=== PATIENT | female | born 2000 | race Caucasian/White ===

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

== ENCOUNTER 2020-06-05 20:37 | Emergency (ER) | payer SELFPAY ==
--- NOTE | 2020-06-05 21:30 | ER Document Report ---
ED GI/ - General Chief Complaint: Flank Pain Stated Complaint: RIGHT SIDE FLANK PAIN Time Seen by Provider: 06/05/20 21:14 Primary Care Provider: JERSON MORENO FNP-MACK [Primary Care Provider] - Follow up as needed Mode of Arrival: Ambulatory Information source: Patient Notes: 06/05/20 21:01 - ED Nursing Note by JACIEL BEST Acc Num: [id number] : 2000 Patient Age: 20 Pt. arrived tonight via POV, C/O right sided flank pain. Pt. has a HX of kidney infection. Pt. is A & O X3, breathing is even and unlabored NAD at this tiem. Initialized on 06/05/20 21:01 - END OF NOTE MY NOTES 20-year-old female arrived by POV with her father as street flusher driver. 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 She reports on Wednesday she had her last Covid test which was negative. She had both nasal and saliva test done. She has been complaining of right anterior chest pain and difficulty breathing since she returned home today. Her mother is ICU nurse and did a percussion of her right CVA which invoked a great deal of pain prior to arrival. Patient reports she has had kidney infections at least twice over the last 2 years. She denies any STDs denies any vaginal discharge denies any . She denies any trauma she denies any abuse. Her father reports they have 2 dogs in the house and neither the dogs nor mother nor father are sick with Covid or URI symptoms. Patient last ate a few oysters prior to arrival. She also advises she last had a fairly good meal was yesterday morning and this is when her father cooked her eggs. Her appetite has been decreased. Patient reports she been driving 3 to 6 hours frequently over the last month. She also takes control pills. TRAVEL OUTSIDE OF THE [place] IN LAST 30 DAYS: No - HPI Patient complains to provider of: Abdominal pain Onset: This morning - Related Data Allergies/Adverse Reactions: No Known Allergies Allergy (Verified 04/17/16 15:57) Past Medical History - Social History Smoking Status: Never Smoker Chew tobacco use (# tins/day): No Frequency of alcohol use: None Drug Abuse: None Family History: Reviewed & Not Pertinent Patient has homicidal ideation: No Renal/ Medical History: Denies: Hx Peritoneal Dialysis Psychiatric Medical History: Reports: Hx Depression - Immunizations Immunizations up to date: Yes Hx Diphtheria, Pertussis, Tetanus Vaccination: Yes Review of Systems - Review of Systems Constitutional: See HPI, Weakness EENT: No symptoms reported Cardiovascular: See HPI, Chest pain Respiratory: No symptoms reported Gastrointestinal: See HPI, Abdominal pain Genitourinary: No symptoms reported Female Genitourinary: No symptoms reported Musculoskeletal: See HPI, Back pain Skin: No symptoms reported Hematologic/Lymphatic: No symptoms reported Neurological/Psychological: No symptoms reported Physical Exam - Vital signs Vitals: Temp 99.0 F 06/05/20 20:38 Interpretation: Febrile - General General appearance: Alert, Anxious - HEENT Head: Normocephalic, Atraumatic Eyes: Normal Pupils: PERRL - Respiratory Respiratory status: No respiratory distress Chest status: Nontender Breath sounds: Normal Chest palpation: Normal - Cardiovascular Rhythm: Regular Heart sounds: Normal auscultation Murmur: No - Abdominal Inspection: Normal Distension: No distension Bowel sounds: Normal Tenderness: Tender - R CVA pain on percussion Organomegaly: No organomegaly - Rectal Hemorrhoids: Other - deferred - Genitourinary Bimanuel exam: Other - deferred - Back Back: Normal, Nontender - Extremities General upper extremity: Normal inspection, Nontender, Normal color, Normal ROM, Normal temperature General lower extremity: Normal inspection, Nontender, Normal color, Normal ROM, Normal temperature, Normal weight bearing. No: Freda's sign - Neurological Neuro grossly intact: Yes Cognition: Normal Orientation: AAOx4 Slade Coma Scale Eye Opening: Spontaneous Johny Coma Scale Verbal: Oriented Johny Coma Scale Motor: Obeys Commands Johny Coma Scale Total: 15 Speech: Normal Motor strength normal: LUE, RUE, LLE, RLE Sensory: Normal - Psychological Associated symptoms: Normal affect, Normal mood - Skin Skin Temperature: Warm Skin Moisture: Dry Skin Color: Normal Course - Vital Signs Vital signs: Temp Pulse Resp BP Pulse Ox 98.9 F 80 20 133/71 H 99 06/05/20 20:45 06/05/20 20:45 06/05/20 20:45 06/05/20 20:45 06/05/20 20:45 - Laboratory Result Diagrams: 06/05/20 21:24 06/05/20 21:24 Laboratory results interpreted by me: 06/05/20 06/05/20 06/05/20 21:24 21:24 21:39 Hgb 10.2 L Hct 30.6 L MCH 26.9 L Sodium 134.0 L Urine Ketones 20 H - Diagnostic Test Radiology reviewed: Reports reviewed - Initial reading was bilateral infiltrates right greater than left lower lobes on chest x-ray.; CTA revealed right greater than left pulmonary embolism with pleural effusion Critical Care Note - Critical Care Note Total time excluding time spent on procedures (mins): 40 Comments: Prolonged work-up and discussion with patient and family involved around 40 minutes of time. Discharge - Discharge Clinical Impression: Pulmonary embolism and infarction Abdominal pain Qualifiers: Abdominal location: right upper quadrant Qualified Code(s): R10.11 - Right upper quadrant pain Back pain Qualifiers: Back pain location: thoracic back pain Chronicity: acute Back pain laterality: right Qualified Code(s): M54.6 - Pain in thoracic spine Condition: Stable Disposition: HOME, SELF-CARE Additional Instructions: Follow-up with personal doctor this week. Return to ER as needed take medicines as directed. May want to hold your control pills and any progesterone or estrogen in the future. Also you can get your doctor to evaluate for protein C protein S Antithrombin III Leyden factor V and other blood tests to check for clotting problems. Take medications Zithromax Decadron and Pepcid for inflammation. So far your CT does not show any Covid type inflammation but only pulmonary emboli. Avoid flying or prolonged driving; every hour after driving (greater than 1 hour) try to stop driving and stand and walk for at least 30 feet. Your Covid test will be run and processed after 2 days. Prescriptions: Dexamethasone [Decadron 4 Mg Tablet] 4 mg PO DAILY #5 tablet Famotidine [Pepcid 20 mg Tablet] 20 mg PO BID #12 tablet Rivaroxaban [Xarelto 15 mg Tablet] 15 mg PO BID 21 Days #42 tablet Azithromycin [Zithromax 250 mg Tablet] 250 mg PO ASDIR PRN #6 tablet PRN Reason: Referrals: JERSON MORENO, [facility] [Primary Care Provider] - Follow up as needed
[2020-06-05 21:51] LABS: ABSOLUTE LYMPHOCYTES (AUTO) 1.9 10^3/uL (0.5-4.7); ABSOLUTE NEUT (AUTO) 6.6 10^3/uL (1.7-8.2); ALBUMIN 4.2 g/dL (3.5-5.0); ALKALINE PHOSPHATASE 58 U/L (38-126); ANION GAP 9 (5-19); ASPARTATE AMINO TRANSFERASE 17 U/L (14-36); BASOPHILS % (AUTO) 0.3 % (0-2); BILIRUBIN,TOTAL 0.5 mg/dL (0.2-1.3); BLOOD UREA NITROGEN 8 mg/dL (7-20); CALCIUM 8.9 mg/dL (8.4-10.2); CARBON DIOXIDE 22 mmol/L (22-30); CHLORIDE 103 mmol/L (98-107); EOSINOPHILS % (AUTO) 0.2 % (0-6); GLUCOSE 96 mg/dL (75-110); HEMATOCRIT 30.6 % (36.0-47.0); HEMOGLOBIN 10.2 g/dL (12.0-15.5); LYMPHOCYTES % (AUTO) 19.7 % (13-45); MEAN CORPUSCULAR HEMOGLOBIN 26.9 pg (27.0-33.4); MEAN CORPUSCULAR HGB CONC 33.3 g/dL (32.0-36.0); MEAN CORPUSCULAR VOLUME 81 fl (80-97); MONOCYTES % (AUTO) 10.5 % (3-13); PLATELET COUNT 280 10^3/uL (150-450); POTASSIUM 4.1 mmol/L (3.6-5.0); RED BLOOD COUNT 3.78 10^6/uL (3.72-5.28); RED CELL DISTRIBUTION WIDTH 13.2 % (11.5-14.0); SEGMENTED NEUTROPHILS % (AUTO) 69.3 % (42-78); TOTAL CELLS COUNTED % (AUTO) 100 %; WHITE BLOOD COUNT 9.5 10^3/uL (4.0-10.5)
[2020-06-05 22:02] LABS: APPEARANCE,URINE SLIGHTLY-CLOUDY; BILIRUBIN,URINE NEGATIVE (NEGATIVE); COLOR,URINE YELLOW; GLUCOSE, URINE NEGATIVE (NEGATIVE); KETONES,URINE 20 mg/dL (NEGATIVE); LEUKOCYTE ESTERASE,URINE NEGATIVE (NEGATIVE); NITRITE,URINE NEGATIVE (NEGATIVE); PROTEIN,URINE NEGATIVE (NEGATIVE); UROBILINOGEN,URINE NEGATIVE mg/dL (<2.0)
--- NOTE | 2020-06-05 22:18 | RADIOLOGY REPORT (SQ) ---
EXAM DESCRIPTION: XR CHEST 2 VIEWS COMPLETED DATE/TME: 06/05/2020 21:37 CLINICAL HISTORY: 20 years, Female, right flank pain EXAM DESCRIPTION: CHEST 2 VIEWS CLINICAL HISTORY: right flank pain COMPARISON: None. FINDINGS: Two views of the chest are submitted. Cardiac silhouette appears normal. There is subtle consolidation in the lingula. There is also subtle consolidation at the posterior right lung base. There is no significant pulmonary vascular engorgement. IMPRESSION: Bilateral consolidations.
[2020-06-05] MEDS ORDERED: KETOROLAC TROMETHAMINE INJ/PF 30 MG/1 ML SDV IV ONE (22:30)
[2020-06-05] MEDS ORDERED: AZITHROMYCIN INJ 500 MG VIAL IV ONE (22:41)
[2020-06-05] MEDS ORDERED: FAMOTIDINE INJ/PF 20 MG/2 ML SDV IV ONE (22:42)
[2020-06-05] MEDS ORDERED: DEXAMETHASONE SOD PHOS INJ 10 MG/1 ML VIAL IV ONE (22:42)
--- NOTE | 2020-06-05 23:02 | RADIOLOGY REPORT (SQ) ---
CT ABDOMEN AND PELVIS WITHOUT INTRAVENOUS CONTRAST: 06/05/2020 9:57 PM [employer] HISTORY: 20-year old with right-sided flank pain. COMPARISON: None available TECHNIQUE: Axial contiguous images were obtained from the lung bases to the proximal femurs without intravenous contrast administered. Sagittal and coronal reconstructions were also obtained and reviewed. This exam was performed according to our departmental dose-optimization program, which includes automated exposure control, adjustment of the mA and/or KV according to the patient's size and/or use of iterative reconstruction technique. FINDINGS: There are airspace opacities at the right lung base. There is a trace right effusion present. Evaluation of the solid organs is limited by the lack of intravenous contrast. The visualized hepatic parenchyma is unremarkable. The gallbladder demonstrates no evidence of calcified gallstones. The spleen is within normal limits of size. The pancreas is unremarkable. The bilateral adrenal glands appear unremarkable. Both kidneys demonstrate no evidence of hydronephrosis. No renal or ureteral calculi are seen. The urinary bladder is mildly distended, and appears grossly unremarkable. There is a left adnexal hypodensity measuring at least 5.0 x 3.5 cm. The uterus is faintly visualized. The stomach is not well distended. The small bowel loops appear unremarkable. No pericolonic inflammatory stranding is seen. The appendix appears unremarkable. There is no evidence of pneumoperitoneum or free fluid. The aorta and IVC appear normal in size. No significantly enlarged lymph nodes are seen in the abdomen or pelvis. Review of the bone show no evidence of any suspicious lytic or blastic lesions. There is motion artifact extending across the sacrum, posterior bilateral acetabulum, and right inferior pubic ramus which gives the false appearance of fractures. This can be correlated with any point tenderness. Metallic umbilical jewelry is seen. IMPRESSION: There is a 5.0 cm left adnexal hypodensity which could represent a physiologic cyst. Further evaluation with pelvic ultrasound is recommended to better characterize this area. There is a trace right effusion with overlying airspace opacities concerning for infection. There is motion artifact extending across the sacrum, posterior bilateral acetabulum, and right inferior pubic ramus which gives the false appearance of fractures. This can be correlated with any point tenderness
[2020-06-05] MEDS ORDERED: CEFTRIAXONE INJ 1000 MG VIAL IV ONE (23:26)
--- NOTE | 2020-06-06 00:38 | RADIOLOGY REPORT (SQ) ---
EXAM DESCRIPTION: CTA CHEST CLINICAL HISTORY: 20 years Female; chest with alon infiltrates TECHNIQUE: CT angiogram of the chest using intravenous contrast.. MIP reconstructions were performed. All CT scans at this facility use dose modulation, iterative reconstruction, and/or weight based dosing when appropriate to reduce radiation dose to as low as reasonably achievable. COMPARISON: Radiograph of the chest obtained earlier in the day FINDINGS: Chest: Vascular: Filling defects are present in multiple segmental vessels extending into the right lower lobe. There is a small amount of thrombus also seen extending into scattered left lower lobe branches. Overall clot burden is small to moderate. Findings are consistent with acute bilateral pulmonary artery embolization. No evidence of right heart strain. Thoracic aorta is of normal caliber. Proximal great vessels are normal and the left vertebral artery arises directly from the aortic arch. This is a normal variant. Lungs: Patchy volume loss is present in the right lower lobe posteriorly. This may represent atelectasis, infiltrate or pulmonary infarction. Small right pleural effusion. No pneumothorax. Mediastinum: Heart size is within normal limits. No pericardial abnormality. Soft tissues present in the anterior mediastinum consistent with residual thymic tissue. Bones and soft tissues: Unremarkable Upper Abdomen: Visualized portion of the upper abdomen is unremarkable. IMPRESSION: 1. Bilateral lower lobe pulmonary artery embolization. This is most pronounced in multiple right lower lobe segmental and subsegmental branches. There is associated infiltrate in the right lower lobe with right pleural effusion suggestive of pneumonia, or pulmonary infarction. 2. No evidence of right heart strain.
[2020-06-06] MEDS ORDERED: ENOXAPARIN SODIUM INJ 60 MG/0.6 ML DISP.SYRIN SUBCUT ONE (00:52)
[2020-06-06] MEDS ORDERED: RIVAROXABAN 15 MG TABLET PO ONE (00:53)
[2020-06-06 01:08] LABS: PROTHROMBIN TIME 13.4 SEC (11.4-15.4)
[2020-06-06 01:18] LABS: A TYPE INFLUENZA AG NEGATIVE (NEGATIVE); B INFLUENZA AG NEGATIVE (NEGATIVE)
[2020-06-06] MEDS ORDERED: RIVAROXABAN 15 MG TABLET ONE (01:21)
[2020-06-06] MEDS ORDERED: HYDROCODONE/ACETAMINOPHEN 5-325 MG (6 TAB/ER DISP) PO PRN (01:27)
[2020-06-06] MEDS ORDERED: ONDANSETRON ODT 4 MG TAB (6 TAB/ER DISP) PO PRN (01:27)
[2020-06-06 01:45] LABS: FERRITIN 26.6 ng/mL (6.2-137.0)
[2020-06-06 02:10] VITALS: BP 96/53
== END 2020-06-06 02:00 | disposition home or self-care (01) ==
LOC: ER 20:37
DX: I26.99 Other pulmonary embolism without acute cor pulmonale (principal); R10.11 Right upper quadrant pain; M54.6 Pain in thoracic spine; J90 Pleural effusion, not elsewhere classified; R07.9 Chest pain, unspecified; R53.1 Weakness; R63.0 Anorexia; Z79.3 Long term (current) use of hormonal contraceptives; Z87.440 Personal history of urinary (tract) infections; Z20.828 Contact with and (suspected) exposure to other viral communicable diseases
CPT/HCPCS: 99285; 96375; 96365; 36415; 87040; 87070; 87880; 82150; 82550; 82728; 83615; 83690; 85025; 85610; 85730; 87635; 81025; 87077; 80053; 81001; 84484; 87186; 87804; 87150 ×26; 71046; 71275; 74176; J1885; J0456; J1650; S0028; J1100; C9803